=== PATIENT | female | born 1955 | race Caucasian/White ===

== ENCOUNTER 2018-02-12 18:17 | Emergency (ER) | payer OTHER, SELFPAY ==
[2018-02-12 18:18] VITALS: BP 97/56; PULSE 98; RESP 26; TEMP 37.3; O2SAT 96; BMI 26.4
[2018-02-12 18:34] VITALS: BP 100/59; PULSE 84; RESP 23; O2SAT 98
--- NOTE | 2018-02-12 18:46 | EKG12_ITS ---
Test Reason : CP Blood Pressure : / mmHG Vent. Rate : 099 BPM Atrial Rate : 099 BPM P-R Int : 104 ms QRS Dur : 070 ms QT Int : 350 ms P-R-T Axes : -06 050 090 degrees QTc Int : 449 ms Sinus rhythm with short AL Nonspecific ST and T wave abnormality Abnormal ECG Confirmed by RADHA RANGEL, AYLIN ([id number]), content editor ELISEO HAMPTON ([id number]) on 02/14/2018 1:10:39 PM Referred By: ODESSA Confirmed By:AYLIN GARCIA MD
--- NOTE | 2018-02-12 18:50 | RAD_ITS ---
STUDY: X-RAY CHEST REASON FOR EXAM: Female, 62 years old. Chest pain TECHNIQUE: Single frontal view COMPARISON: None. FINDINGS: The lungs are clear and expanded. There is no demonstrated pleural abnormality. Normal size heart. Normal mediastinum and alex. Normal visualized pulmonary arteries. Normal visualized aortic arch and descending thoracic aorta. Normal visualized thoracic spine. Normal visualized ribs, clavicles, and shoulders. There is no demonstrated abnormality of the visualized soft tissue structures of the upper abdomen. RAD/Chest 1 View (Portable) IMPRESSION: Normal x-ray examination of the chest. Electronically Signed: Giovanni Zhou DO at 19:12 EDT Tel [phone], Service support ,
[2018-02-12 19:01] LABS: Absolute Lymphocyte Count 0.23 X10^3/ul (0.83-4.51); Absolute Neutrophil Count 6.2 X10^3/uL (2.0-7.7); Basophil# 0.01 X10^3/uL; Basophil% 0.2 % (0-1); Eosinophil# 0.01 X10^3/uL; Eosinophils% 0.2 % (0-5); Hematocrit 36.5 % (37-47); Hemoglobin 12.2 g/dl (12.0-15.0); Lymphocyte # 0.23 X10^3/ul (4.0); Lymphocyte % 3.5 % (19-41); Mean Corp Hgb Conc 33.4 g/gl (32-36); Mean Corpuscular Hgb 29.2 pg (27.0-32.0); Mean Corpuscular Volume 87.3 fL (81-99); Mean Platelet Vol. 8.5 fl (6.2-12.0); Neutrophil # 6.16 X10^3/uL (2.7-7.7); Neutrophil % 92.9 % (47-70); Platelet Count 189 K/mm3 (150-450); RBC Distribution Width CV 12.7 % (11.6-14.6); RBC Distribution Width SD 40.7 fl (35.1-43.9); Red Blood Count 4.18 M/mm3 (4.2-5.4); White Blood Count 6.6 K/mm3 (4.4-11.0)
[2018-02-12 19:02] LABS: Differential Indicated SCAN CRITERIA MET; POSITIVE COUNT NO; POSITIVE DIFFERENTIAL YES; POSITIVE MORPHOLOGY NO
[2018-02-12] MEDS: proMETHazine 25 MG/ML Syringe 12.5 MG IV (19:05)
[2018-02-12] MEDS: Ketorolac 30 MG/ML Syringe IV (19:05)
[2018-02-12 19:08] VITALS: BP 106/56; PULSE 80; RESP 26; O2SAT 98
[2018-02-12 19:16] LABS: ALB/GLOB Ratio 1.3 RATIO (0.9-2.4); AST(SGOT) 14 U/L (15-37); Alanine Aminotransfer ALT/SGPT 15 U/L (13-56); Albumin, Serum 3.9 g/dL (3.2-5.0); Alkaline Phosphatase 75 U/L (45-117); Anion Gap 10 (5-15); BUN 20 mg/dL (7-18); BUN/Creat Ratio 18.2 RATIO (10-20); Calcium,Total 9.3 mg/dL (8.5-10.1); Chloride 108 mmol/L (98-107); EST Glomerular Filtration Rate 53 mL/min (>60); Est Glom Filt Rate - Afr Amer 64 mL/min (>60); Glucose 142 mg/dL (74-106); Lipase 177 U/L (73-393); Potassium 3.6 mmol/L (3.5-5.1); Protein, Total 6.9 g/dL (6.4-8.2); Sodium Level 139 mmol/L (136-145)
[2018-02-12 19:17] LABS: Differential Comment SCANNED
--- NOTE | 2018-02-12 20:03 | ED.VISSUMM ---
- ER Visit Summary Date of Service: 02/12/18 Chief Complaint: Chest pain History of Present Illness: The patient is a 62 F who states that yesterday at work she had about 2 hours of a midsternal chest pain. She states that this morning she had nausea vomiting as well as some abdominal pain. Then began to have a burning sensation up the center of her chest. Now she has developed pressure in the center of her chest going into her left arm. She states she has been using Tums in the past and use some Tums today. She notes she had some diarrhea earlier in the day as well. Her significant other states that he is getting over gastroenteritis. No fevers. Physical Examination: Afebrile vital signs are stable Gen: Well-nourished well-developed Head: Normocephalic atraumatic Eyes: Perrl EOMI ENT: TMs clear no rhinorrhea moist mucous membranes Neck: Supple no lymphadenopathy no JVD nontender CVS: Regular rate rhythm no murmurs normal S1-S2 Respiratory: No distress clear to auscultation bilaterally anterior chest is tender to palpation over the sternum. States that this reproduces her pain. Abdomen: Soft nontender nondistended normal bowel sounds no masses Back: Nontender Extremity: Nontender no edema Skin: Normal color no rash Neuro: alert orientated ?3 CN II-XII intact normal strength sensation reflexes gait cerebellar Psych: Extremely anxious Test Results: EKG sinus at a rate of 99. Basic labs showed a creatinine 1.10 BUN 20 glucose 142. Troponin less than 0.02. Chest x-ray negative. Emergency Department Course and Treatment: Patient received Toradol GI cocktail and some Phenergan and is feeling better. Based on the patient's account the troponin is about a 6 hour troponin. I think her TMs are most likely related to chest wall strain from vomiting. There is most likely component of anxiety. Patient will be discharged home follow-up with her doctor return if worsening. Impression: 1. Acute gastroenteritis 2. Chest wall pain This note was generated with [employer] dictation software. It may contain incorrect words, spelling, and punctuation that were not noted in review of the chart prior to signing ED Disposition - Plan for ED Patient: Disposition: Home or Assisted Living Chief Complaint: Chest Pain Instructions: ED Strain Chest Wall, ED Gastroenteritis Viral Prescriptions: Ondansetron [Zofran Odt] 4 mg PO Q6H PRN PRN #14 tab PRN Reason: Nausea Referrals: Jovany Rodriguez III, MD [STAFF PHYSICIAN] - 3-5 Days if not improving
[2018-02-12 20:17] VITALS: BP 162/60; PULSE 68; RESP 20; O2SAT 96
== END 2018-02-12 20:27 | disposition home or self-care (01) ==
PROVIDERS: Emergency Provider Emergency Medicine
DX: K52.9 Noninfective gastroenteritis and colitis, unspecified (principal); R07.89 Other chest pain; R06.00 Dyspnea, unspecified; E03.9 Hypothyroidism, unspecified; Z79.899 Other long term (current) drug therapy
CPT/HCPCS: 71045; 80053; 83690; 84484; 85025; 93005; 96374; 96375; 99285